=== PATIENT | female | born 2000 | race Caucasian/White ===

== ENCOUNTER 2020-04-13 18:27 | Outpatient (CLI) | payer OTHER | END 2020-04-13 19:12 | disposition home or self-care (01) | LOC: NST 18:27 | PROVIDERS: ATTEND Obstetrics & Gynecology | DX: Z34.82 Encounter for supervision of other normal pregnancy, second trimester (principal) ==

== ENCOUNTER 2020-07-07 15:37 | Outpatient (CLI) | payer OTHER | END 2020-07-07 16:44 | disposition home or self-care (01) | LOC: NST 15:37 | PROVIDERS: ATTEND Obstetrics & Gynecology | DX: Z34.83 Encounter for supervision of other normal pregnancy, third trimester (principal) ==

== ENCOUNTER 2020-07-18 14:40 | Inpatient (IN) | payer OTHER ==
[~2020-07-18] VITALS: Ht 162.6 cm; Wt 3.2 kg
[2020-07-19] MEDS ORDERED: PRENATAL CAPLE1 EAC1 PO (14:23)
== END 2020-07-22 14:47 | disposition home or self-care (01) | DRG 788 ==
LOC: OB/GYN 14:40 → LDR 07-19 05:23 → O/R 07-20 08:43 → OB/GYN 07-20 16:07
PROVIDERS: ADMIT Obstetrics & Gynecology; ATTEND Obstetrics & Gynecology
PROC: 4A1HXFZ Monitoring of Products of Conception, Cardiac Rhythm, External Approach (ICD-10-PCS; 2020-07-19)
PROC: 3E033VJ Introduction of Other Hormone into Peripheral Vein, Percutaneous Approach (ICD-10-PCS; 2020-07-19)
PROC: 10D00Z1 Extraction of Products of Conception, Low, Open Approach (ICD-10-PCS; principal; 2020-07-19 18:00)
DX: O62.1 Secondary uterine inertia (principal); O61.0 Failed medical induction of labor; Z3A.40 40 weeks gestation of pregnancy; Z37.0 Single live birth; Z20.828 Contact with and (suspected) exposure to other viral communicable diseases